=== PATIENT | male | born 1990 | race African-American/Black ===

== ENCOUNTER 2021-06-10 11:39 | Emergency (ER) | payer MEDICAID, OTHER ==
[2021-06-10 14:53] VITALS: BP 153/61
[2021-06-10] MEDS ORDERED: CIPR500T4 PO (15:13)
[2021-06-10] MEDS ORDERED: IBUP800T27 PO (15:13)
== END 2021-06-10 16:32 | disposition home or self-care (01) ==
LOC: ER 11:39
DX: N20.0 Calculus of kidney (principal); N39.0 Urinary tract infection, site not specified; Z79.1 Long term (current) use of non-steroidal anti-inflammatories (NSAID); Z79.2 Long term (current) use of antibiotics
CPT/HCPCS: 74176